=== PATIENT | male | born 1970 | race Hispanic/Latino ===

== ENCOUNTER 2024-04-01 20:34 | Emergency (ER) | payer OTHER ==
[2024-04-01 21:19] LABS: Absolute Eosinophils 0.1 K/uL (0-0.5); Absolute Lymphocytes (CBC) 1.5 K/uL (0.7-4.9); Absolute Monocytes 0.6 K/uL (0.1-1.3); Absolute Neutrophil 5.9 K/uL (1.8-8.0); Basophils % 0.2 % (0-1.3); Eosinophils % 1.4 % (0-4.4); Hematocrit 46.5 % (39.6-49.0); Hemoglobin 15.5 g/dL (13.6-17.9); Lymphocytes % 18.3 % (15.3-44.8); MCH 28.4 pg (27.0-35.0); MCHC 33.3 g/dL (32.0-36.0); MCV 85.2 fL (80-100); MPV 8.7 fL (7.6-11.3); Monocytes % 7.6 % (3.3-12.3); Neutrophils % 72.5 % (41.7-73.7); Nucleated Red Blood Cells % 0.1 % (0-0); Platelets 235 thou/uL (152-406); RBC Red Blood Cell Count 5.46 M/uL (4.33-5.43); Red Cell Distribution Width 13.6 % (12.1-15.2)
[2024-04-01 21:24] LABS: PT Prothrombin Time 11.3 SECONDS (9.4-12.5); Protime INR 1.01
--- NOTE | 2024-04-01 21:34 | RAD REPORT ---
Procedure: Chest Single View HISTORY: Chest pain COMPARISON: 2016 FINDINGS: The lungs appear clear of acute infiltrate. No significant pleural effusion noted. The heart is normal size. IMPRESSION: No acute abnormality is displayed.
[2024-04-01 21:39] LABS: ALT/SGPT 69 U/L (16-61); AST/SGOT 39 U/L (15-37); Albumin 3.6 g/dL (3.4-5.0); Alkaline Phosphatase 89 U/L (45-117); Anion Gap 7.8 mEq/L (5.0-15.0); BUN Blood Urea Nitrogen 11 mg/dL (7-18); Bicarbonate 27 mEq/L (21-32); Bilirubin Total 0.4 mg/dL (0.2-1.0); Globulin 3.7 g/dL (2.3-3.5); Glomerular Filtration Rate 107 ml/min (=/>90); Glucose Level 189 mg/dL (74-106); Magnesium 2.2 mg/dL (1.6-2.4); NT PRO-BNP 12 pg/mL (<125); Potassium 3.8 mEq/L (3.5-5.1); Protein, Total 7.3 g/dL (6.4-8.2); Sodium Level 135 mEq/L (136-145); Troponin High Sensitivity 6.6 pg/mL (<58.9)
[2024-04-01 21:40] LABS: Bilirubin Direct < 0.2 mg/dL (0-0.2); Bilirubin Indirect, Calculated 0.2 mg/dL (0.2-0.8)
[2024-04-01 22:11] LABS: Thyroid Stimulating Hormone 3.51 uIU/mL (0.358-3.740)
--- NOTE | 2024-04-02 00:37 | ER ---
Nurse's Notes [facility] Name: Brett Solis Jr Age: 53 yrs Sex: Male : 1970 Arrival Date: 04/01/2024 Time: 20:34 Bed 2 Private MD: Diagnosis: Chest pain, unspecified;Dyspnea Presentation: 04/01 20:50 Chief complaint: Patient states: about an hour ago was laying down to go for a nap al5 before work and started to experience difficulty breathing and some chest discomfort rating a 5/10 at the time, denies chest pain at this time. Coronavirus screen: At this time, the client does not indicate any symptoms associated with coronavirus-19. Ebola Screen: No symptoms or risks identified at this time. Initial Sepsis Screen: Does the patient meet any 2 criteria? No. Patient's initial sepsis screen is negative. Does the patient have a suspected source of infection? No. Patient's initial sepsis screen is negative. Risk Assessment: Do you want to hurt yourself or someone else? Patient reports no desire to harm self or others. Onset of symptoms was April 01, 2024. 20:50 Method Of Arrival: Ambulatory al5 20:50 Acuity: BRUNILDA 2 al5 Triage Assessment: 20:52 General: Appears in no apparent distress. Behavior is calm, cooperative. Pain: Denies al5 pain. EENT: No signs and/or symptoms were reported regarding the EENT system. Neuro: Level of Consciousness is awake, alert, obeys commands, Oriented to person, place, time, situation. Cardiovascular: Capillary refill < 3 seconds Patient's skin is warm and dry. Chest pain was having chest discomfort about an hour ago, denies chest pain at this time. Respiratory: Reports difficulty to breathe when laying down Airway is patent Respiratory effort is even, unlabored, Respiratory pattern is regular, symmetrical, Onset: The symptoms/episode began/occurred suddenly, the patient has mild shortness of breath. GI: No signs and/or symptoms were reported involving the gastrointestinal system. : No signs and/or symptoms were reported regarding the genitourinary system. Derm: Skin is intact, is healthy with good turgor, Skin is pink, warm \T\ dry. normal. Musculoskeletal: No signs and/or symptoms reported regarding the musculoskeletal system. Historical: - Allergies: 20:52 No Known Allergies; al5 - PMHx: 20:52 Diabetes mellitus; Hypertensive disorder; Hypercholesterolemia; Anxiety; al5 - PSHx: 20:52 None; al5 - Immunization history:: Adult Immunizations up to date. - Infectious Disease History:: Denies. - Social history:: Smoking status: Patient denies any tobacco usage or history of. - Family history:: not pertinent. Screenin:54 [facility] ED Fall Risk Assessment (Adult) History of falling in the last 3 months, al5 including since admission No falls in past 3 months (0 pts) Confusion or Disorientation No (0 pts) Intoxicated or Sedated No (0 pts) Impaired Gait No (0 pts) Mobility Assist Device Used No (0 pt) Altered Elimination No (0 pt) Score/Fall Risk Level 0 - 2 = Low Risk Oriented to surroundings, Maintained a safe environment, Hourly rounding (assess needs \T\ fall precautionary measures) done. Abuse screen: Denies threats or abuse. Denies injuries from another. Nutritional screening: No deficits noted. Tuberculosis screening: No symptoms or risk factors identified. Assessment: 21:13 Cardiovascular: Rhythm is sinus rhythm. Respiratory: Airway is patent Respiratory al5 effort is even, unlabored, Respiratory pattern is regular, symmetrical, Breath sounds are clear bilaterally. 22:54 Reassessment: Patient appears in no apparent distress at this time. No changes from al5 previously documented assessment. Patient and/or family updated on plan of care and expected duration. Pain level reassessed. Patient is alert, oriented x 3, equal unlabored respirations, skin warm/dry/pink. 04/02 00:37 Reassessment: Patient appears in no apparent distress at this time. Patient and/or al5 family updated on plan of care and expected duration. Pain level reassessed. Patient is alert, oriented x 3, equal unlabored respirations, skin warm/dry/pink. Patient states feeling better. Vital Signs: 04/01 20:50 BP 143 / 91; Pulse 79; Resp 16; Temp 97.9; Pulse Ox 98% on R/A; Weight 95.25 kg; Height al5 5 ft. 4 in. ; Pain 0/10; 21:00 BP 144 / 89; Pulse 75; Resp 16; Pulse Ox 98% on R/A; al5 21:15 BP 151 / 80; Pulse 70; Resp 21; Pulse Ox 97% on R/A; al5 21:30 BP 161 / 95; Pulse 69; Resp 12; Pulse Ox 96% on R/A; al5 22:15 BP 147 / 88; Pulse 65; Resp 14; Pulse Ox 98% on R/A; al5 22:30 BP 131 / 76; Pulse 66; Resp 12; Pulse Ox 98% on R/A; al5 22:45 BP 124 / 81; Pulse 66; Resp 13; Pulse Ox 98% on R/A; al5 23:00 BP 138 / 81; Pulse 67; Resp 12; Pulse Ox 98% on R/A; al5 23:15 BP 129 / 79; Pulse 68; Resp 14; Pulse Ox 97% on R/A; al5 04/02 00:15 BP 127 / 80; Pulse 71; Resp 16; Pulse Ox 99% on R/A; al5 04/01 20:50 Body Mass Index 36.05 (95.25 kg, 162.56 cm) al5 04/01 20:50 Pain Scale: Adult al5 [place] Coma Score: 04:56 Eye Response: spontaneous(4). Motor Response: obeys commands(6). Verbal Response: sp4 oriented(5). Total: 15. ED Course: 04/01 20:36 Patient arrived in ED. mr 20:49 Mechelle Tellez, FANNY is Primary Nurse. al5 20:52 Triage completed. al5 20:53 Arm band placed on right wrist. Patient placed in the treatment room, on a stretcher, al5 on pulse oximetry. 20:54 Patient has correct armband on for positive identification. Bed in low position. Call al5 light in reach. Side rails up X 1. Provided Education on: plan of care. 20:54 No provider procedures requiring assistance completed. al5 20:55 Marcos Blair MD is Attending Physician. sp4 21:13 Inserted saline lock: 20 gauge in right antecubital area, using aseptic technique. al5 Blood collected. Flushed with 10 mL NS. 21:18 XRAY Chest (1 view) In Process Unspecified. EDMS 23:57 Troponin High Sensitivity Sent. al5 23:57 Repeat lab(s) drawn. by mt, sent to lab. al5 04/02 00:52 IV discontinued, intact, bleeding controlled, No redness/swelling at site. Pressure al5 dressing applied. Administered Medications: No medications were administered Medication: 04/01 20:54 VIS not applicable for this client. al5 Outcome: 04/02 00:37 Discharge ordered by . sp4 00:52 Discharged to home ambulatory, al5 00:52 Condition: good 00:52 Discharge instructions given to patient, Instructed on discharge instructions, follow up and referral plans. Demonstrated understanding of instructions, follow-up care, 00:53 Patient left the ED. al5 Signatures: Dispatcher [employer] EDMary Dickson, Reg Reg mr Marcos Blair MD MD sp4 Mechelle Tellez RN RN al5
--- NOTE | 2024-04-02 00:37 | EDPHYS ---
Physician Documentation [facility] Name: Brett Solis Jr Age: 53 yrs Sex: Male : 1970 Arrival Date: 04/01/2024 Time: 20:34 Bed 2 Private MD: ED Physician Marcos Blair HPI: 04/01 20:55 This 53 yrs old Male presents to ER via Ambulatory with complaints of sp4 Breathing Difficulty, Chest discomfort. 04/02 04:56 53-year-old male presents with acute onset of chest discomfort and breathing sp4 difficulty. Patient has history of diabetes, type II controlled with Basaglar and lispro insulin. Patient also has history of hypertension hyperlipidemia controlled with simvastatin and losartan 20 mg daily. Patient also takes Trijardy . Historical: - Allergies: 04/01 20:52 No Known Allergies; al5 - PMHx: 20:52 Diabetes mellitus; Hypertensive disorder; Hypercholesterolemia; Anxiety; al5 - PSHx: 20:52 None; al5 - Immunization history:: Adult Immunizations up to date. - Infectious Disease History:: Denies. - Social history:: Smoking status: Patient denies any tobacco usage or history of. - Family history:: not pertinent. ROS: 04/02 04:56 Constitutional: Negative for fever, chills, and weight loss, positive dyspnea on sp4 awakening, positive chills discomfort All other systems are negative, Exam: 04:56 Constitutional: This is a well developed, well nourished patient who is awake, alert, sp4 and in no acute distress. Head/Face: Normocephalic, atraumatic. Eyes: Pupils equal round and reactive to light, extra-ocular motions intact. Lids and lashes normal. Conjunctiva and sclera are not injected. Cornea within normal limits. Periorbital areas with no swelling, redness, or edema. ENT: Nares patent. No nasal discharge, no septal abnormalities noted. Tympanic membranes are normal and external auditory canals are clear. Oropharynx with no redness, swelling, or masses, exudates, or evidence of obstruction, uvula midline. Mucous membranes moist. Neck: Trachea midline, no thyromegaly or masses palpated, and no cervical lymphadenopathy. Supple, full range of motion without nuchal rigidity, or vertebral point tenderness. Chest/axilla: Normal chest wall appearance and motion. Nontender with no deformity. No lesions are appreciated. Cardiovascular: Regular rate and rhythm with a normal S1 and S2. No gallops, murmurs, or rubs. Normal PMI, no JVD. No pulse deficits. Respiratory: Lungs have equal breath sounds bilaterally, clear to auscultation and percussion. No rales, rhonchi or wheezes noted. No increased work of breathing, no retractions or nasal flaring. Abdomen/GI: Soft, with normal bowel sounds. No distension or tympany. No guarding or rebound. No evidence of tenderness throughout. Back: No spinal tenderness. No costovertebral tenderness. Skin: Warm, dry with normal turgor. Normal color with no rashes, no lesions, and no evidence of cellulitis. MS/ Extremity: Pulses equal, no cyanosis. Neurovascular intact. Full, normal range of motion. Neuro: Awake and alert, GCS 15, oriented to person, place, time, and situation. Cranial nerves II-XII grossly intact. Motor strength 5/5 in all extremities. Sensory grossly intact. Psych: Awake, alert, with orientation to person, place and time. Behavior, mood, and affect are within normal limits 04:56 ECG was reviewed by the Attending Physician. EKG at 2101 normal sinus rhythm rate 73 Vital Signs: 04/01 20:50 BP 143 / 91; Pulse 79; Resp 16; Temp 97.9; Pulse Ox 98% on R/A; Weight 95.25 kg; Height al5 5 ft. 4 in. ; Pain 0/10; 21:00 BP 144 / 89; Pulse 75; Resp 16; Pulse Ox 98% on R/A; al5 21:15 BP 151 / 80; Pulse 70; Resp 21; Pulse Ox 97% on R/A; al5 21:30 BP 161 / 95; Pulse 69; Resp 12; Pulse Ox 96% on R/A; al5 22:15 BP 147 / 88; Pulse 65; Resp 14; Pulse Ox 98% on R/A; al5 22:30 BP 131 / 76; Pulse 66; Resp 12; Pulse Ox 98% on R/A; al5 22:45 BP 124 / 81; Pulse 66; Resp 13; Pulse Ox 98% on R/A; al5 23:00 BP 138 / 81; Pulse 67; Resp 12; Pulse Ox 98% on R/A; al5 23:15 BP 129 / 79; Pulse 68; Resp 14; Pulse Ox 97% on R/A; al5 04/02 00:15 BP 127 / 80; Pulse 71; Resp 16; Pulse Ox 99% on R/A; al5 04/01 20:50 Body Mass Index 36.05 (95.25 kg, 162.56 cm) al5 04/01 20:50 Pain Scale: Adult al5 [place] Coma Score: 04:56 Eye Response: spontaneous(4). Motor Response: obeys commands(6). Verbal Response: sp4 oriented(5). Total: 15. MDM: 04/01 21:01 Differential diagnosis: Anxiety Reaction asthma, Bronchitis CHF exacerbation, sp4 pneumonia. Data reviewed: vital signs, nurses notes, old medical records, lab test result(s), EKG, radiologic studies, plain films. 21:01 Scoring Tools HEART Score: History: Slightly Suspicious (0) ECG: Normal (0) Age: > 45 sp4 and < 65 years (1) Risk Factors: > or = 3 Risks factors for Atherosclerotic disease (2) Troponin: < or = 1 x Normal limit (0) Total Score = 3. 22:06 Medical Screening Exam initiated sp4 23:27 ED course: Procedure: Chest Single View HISTORY: Chest pain COMPARISON: 2015 FINDINGS: sp4 The lungs appear clear of acute infiltrate. No significant pleural effusion noted. The heart is normal size. IMPRESSION: No acute abnormality is displayed. . 04/01 20:56 Order name: Basic Metabolic Panel; Complete Time: 23:23 sp4 04/01 20:56 Order name: CBC with Diff; Complete Time: 23:23 sp4 04/01 20:56 Order name: LFT's; Complete Time: 23:23 sp4 04/01 20:56 Order name: Magnesium; Complete Time: 23:23 sp4 04/01 20:56 Order name: NT PRO-BNP; Complete Time: 23:23 sp4 04/01 20:56 Order name: PT-INR; Complete Time: 23:23 sp4 04/01 20:56 Order name: Troponin HS; Complete Time: 23:23 sp4 04/01 21:14 Order name: TSH; Complete Time: 23:23 sp4 04/01 21:14 Order name: T4 Free; Complete Time: 23:23 sp4 04/01 23:26 Order name: Troponin High Sensitivity; Complete Time: 00:32 sp4 04/01 20:56 Order name: XRAY Chest (1 view); Complete Time: 23:23 sp4 04/01 20:56 Order name: EKG; Complete Time: 20:56 sp4 04/01 20:56 Order name: Cardiac monitoring; Complete Time: 21:12 sp4 04/01 20:56 Order name: EKG - Nurse/Tech; Complete Time: 21:12 sp4 04/01 20:56 Order name: IV Saline Lock; Complete Time: 21:12 sp4 04/01 20:56 Order name: Labs collected and sent; Complete Time: 21:12 sp4 04/01 20:56 Order name: O2 Per Protocol; Complete Time: 21:12 sp4 04/01 20:56 Order name: O2 Sat Monitoring; Complete Time: 21:12 sp4 EC:01 Rate is 73 beats/min. Rhythm is regular, Normal Sinus Rhythm. QRS [place] is Normal. MD sp4 interval is normal. QRS interval is normal. QT interval is normal. No Q waves. T waves are Normal. No ST changes noted. Clinical impression: Normal ECG. Interpreted by me. Reviewed by me. Administered Medications: No medications were administered Disposition Summary: 04/02/24 00:37 Discharge Ordered Problem: new sp4 Symptoms: have improved sp4 Condition: Stable sp4 Diagnosis - Chest pain, unspecified sp4 - Dyspnea sp4 Followup: sp4 - With: Private Physician - When: 7 - 10 days - Reason: Recheck today's complaints Discharge Instructions: - Discharge Summary Sheet sp4 - Shortness of Breath, Adult, [id number] sp4 Forms: - Patient Portal Instructions sp4 Signatures: Dispatcher [employer] EDMS Marcos Blair MD MD sp4 Mechelle Tellez RN RN al5 Corrections: (The following items were deleted from the chart) 23:26 23:26 Troponin High Sensitivity+[id number] ordered. EDMS EDMS
[2024-04-02 00:57] VITALS: TEMP 97.9
[2024-04-02 01:12] VITALS: BP 127/80; O2SAT 99
--- NOTE | 2024-04-02 15:40 | EKG ---
Test Date: 2024-04-01 Test Time: 21:01:52 Taximeter Repairer: KARTHIK MEASUREMENT RESULTS: Intervals: Rate: 73 ND: 162 QRSD: 94 QT: 376 QTc: 414 [place]: P: 41 ND: 162 QRS: 33 T: 38 INTERPRETIVE STATEMENTS: Normal sinus rhythm Normal ECG No previous ECG available for comparison Electronically Signed On 04-02-24 15:39:40 SW[employer]ARD W[employer] by Mino Mcgee
== END 2024-04-02 00:53 | disposition home or self-care (01) ==
LOC: ER 20:34
DX: R06.00 Dyspnea, unspecified (principal); R07.9 Chest pain, unspecified; E11.9 Type 2 diabetes mellitus without complications; I10 Essential (primary) hypertension; E78.00 Pure hypercholesterolemia, unspecified; F41.9 Anxiety disorder, unspecified
CPT/HCPCS: 36415; 71045; 80048; 80076; 83735; 83880; 84439; 84443; 84484; 85025; 85610; 93005; 99284